=== PATIENT | male | born 1940 | race Caucasian/White ===

== ENCOUNTER 2021-05-18 13:12 | Observation (INO) | payer MEDICARE, BC ==
[2021-05-18] VITALS (9 sets, daily range): BP systolic 117–179; BP diastolic 62–79
[~2021-05-18] VITALS: Ht 175.3 cm; Wt 88.6 kg
--- NOTE | 2021-05-18 13:12 | NUR ---
PT TO ROOM VIA EMS STRETCHER. HE REPORTS DIZZINESS AND GENERALIZED WEAKNESS AFTER WORKING IN HEAT AND TAKING AN OLD MEDICAL MARIJUANA PILL. DR RIOS AT BEDSIDE.
--- NOTE | 2021-05-18 13:17 | NUR ---
DR RIOS CALLED A STROKE ALERT.
--- NOTE | 2021-05-18 13:24 | NUR ---
VITAL SIGNS OBTAINED PATIENT APPEARS DROWSY AND PATIENT TO CT SCAN ON PRODUCT INSPECTION SUPERVISOR WITH NURSE X 2. VSS.
--- NOTE | 2021-05-18 13:34 | NUR ---
DR GONZALES ON TELE SCREEN AT THIS TIME TO ASSESS PATIENT. DR RIOS NOW AT BEDSIDE IN CT SCAN REQUESTING THAT HE STOP HIS ASSESSMENT PT IS COMPLAINING OF ABD PAIN WITH HISTORY OF ABDOMINAL ANEURYSM AND WE NEED A STAT CT SCAN OF THE ABDOMEN. HE WILL WAIT AND FINISH ASSESSMENT AFTER SCAN.
--- NOTE | 2021-05-18 13:55 | NUR ---
PT RETURNED FROM CT, MARIO INITIATED, BP 193/84.
[2021-05-18 14:03] LABS: HEMATOCRIT 41.1 % (39.0-50.0); HEMOGLOBIN 13.4 g/dl (14.0-18.0); IMMATURE GRANULOCYTES 0.6 % (0.0-5.0); MEAN CELL VOLUME 91.1 fL CALC (80.0-100.0); MEAN CORPUSCULAR HGB 29.7 pG CALC (26.0-32.0); MEAN CORPUSCULAR HGB CONC 32.6 g/dL CAL (32.0-36.0); NEUT# 3.76 thou/uL (1.82-7.42); RED BLOOD COUNT 4.51 mill/uL (4.70-6.10); RED CELL DISTRI WIDTH 13.3 % (11.5-15.5)
--- NOTE | 2021-05-18 14:05 | NUR ---
PATIENT BP NOTED TO BE 156/67, DR BATISTA, MARIO SALAZAR'D
[2021-05-18 14:14] LABS: ALBUMIN 3.9 g/dL (3.2-5.0); ALKALINE PHOSPHATASE 70 u/l (38-126); AMYLASE 58 u/l (30-110); ANION GAP 11 (6-22 (CALC)); BILIRUBIN, TOTAL 0.6 mg/dL (0.0-1.4); BUN 24 mg/dL (8-23); BUN/CREATININE RATIO 18 (12-20 (CALC)); CARBON DIOXIDE 27 mmol/l (22-30); CHLORIDE 100 mmol/l (95-108); CREATININE 1.3 mg/dL (0.7-1.3); ETHYL ALCOHOL 0 mg/dl (0-30); GFR 53 ML/MIN (>=60 (CALC)); GFR FOR AFR.AMER. > 60 ML/MIN (>=60 (CALC)); LIPASE 33 u/l (23-300); MAGNESIUM 2.1 mg/dL (1.6-2.3); POTASSIUM 4.3 mmol/l (3.5-5.1); SGOT/AST 41 u/l (19-48); SODIUM 134 mmol/l (137-146)
[2021-05-18 14:26] LABS: ACT PARTIAL THROMBO TIME 19.5 SECONDS (20.0-32.5); D-DIMER 3.69 mg/L (0.19-0.60); PROTHROMBIN TIME 10.3 SECONDS (9.0-12.5)
--- NOTE | 2021-05-18 14:42 | NUR ---
PT POOR HISTORAIN, UNABLE TO RECONCILE MEDICATIONS.
--- NOTE | 2021-05-18 14:46 | NUR ---
PATIENT RESTING QUIETLY. MOUTH CARE GIVEN. CALL IVEY IN REACH.
[2021-05-18 15:13] LABS: URINE BILIRUBIN - DIPSTICK NEGATIVE (NEGATIVE); URINE BLOOD DIPSTICK NEGATIVE (NEGATIVE); URINE COLOR YELLOW; URINE GLUCOSE - DIPSTICK >=1000 mg/dL (NEGATIVE); URINE KETONE NEGATIVE (NEGATIVE); URINE LEUK ESTERASE NEGATIVE (NEGATIVE); URINE PH 7.5 (4.5-8.0); URINE PROTEIN - DIPSTICK NEGATIVE (NEG-TRACE); URINE UROBILINOGEN - DIPSTICK 0.2 E.U./dL (0.2)
[2021-05-18 15:18] LABS: URINE NITRITE - DIPSTICK NEGATIVE (Negative)
--- NOTE | 2021-05-18 15:30 | NUR ---
PATIENT STABLE,RESTING QUIETLY.
--- NOTE | 2021-05-18 16:00 | NUR ---
SPOKE TO PATIENT DAUGHTER NICOLASA LÓPEZ REGARDING STATUS.
--- NOTE | 2021-05-18 16:45 | NUR ---
RECIEVED REPORT FROM ER NURSE NABOR.
--- NOTE | 2021-05-18 17:00 | NUR ---
PATIENT ARRIVED ONTO THE FLOOR
--- NOTE | 2021-05-18 17:03 | NUR ---
REPORT CALLED TO NAHED SYKES IN ICU
--- NOTE | 2021-05-18 17:25 | NUR ---
PATIENT ASSESSED, A/O X3. DROWSY. 4MM EYES BILAT. MARILYN SCORE 2. 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 STRONG PULSES. EDEMA BLE PIT 2+. ACTIVE BS. BM THIS AM. WEAK BLE. CLEAR/DIMINSIHED LUNG SOUNDS. CLEAR/SLOW SPEECH. SAEFTY MEASURES IN PLACE. CALL LIGHT IN REACH. WILL CONTINUE TO MONITOR. SPOKE TO DAUGHTER JOHNNIE, REQUESTED AN UPDATE.
--- NOTE | 2021-05-18 20:00 | NUR ---
PATIENT RESTING IN BED WITH EYES CLSOED. AWAKENS EASILY TO NAME. ALERT AND OREINTED ON AWAKENING. SPEECH CLEAR AND APPROPRIATE IN RESPONSE TO QUESTIONS. FACE SYMMETRICL, TONGUE MIDLINE ON EXTENSION. FOLLOWS DIRECTIONS. HG AND P/P EQUAL AND FIRM. NO DRIFT NOTED. RESP NON-LABORED. LUNGS CLEAR. SALINE LOCK INTATC IN LW. IV IN RAC WITH NS INFUSING AT 100 ML/HR. BOTH IV SITES BENIGN. SUPERVISOR NUT PROCESSING SHOWS SR. DISCUSSED PLAN OF CARE. PATIENT STATES HE IS HUNGRY. PATIENT PROVIDED WITH SANDWICH, SODA, AND APPLESAUCE. CALL IVEY IN REACH.
--- NOTE | 2021-05-18 22:15 | NUR ---
PATIENT RESTING IN BED WITH EYES CLSOED. RESP NON-LABORED. VSS. SR WITH 1 [address] DEGREE AVB ON MONITOR. PATIENT DAUGHTER YASMANI LÓPEZ PHONED IN FOR CONDITION UPDATE.
--- NOTE | 2021-05-18 22:45 | NUR ---
SONANTA 5 MG PO GIVEN FOR SLEEP PER PATIENT REQUEST.
[2021-05-19] VITALS (8 sets, daily range): BP systolic 136–181; BP diastolic 63–79
--- NOTE | 2021-05-19 | NUR ---
VSS. RESP NON-LABORED. RESTING QUIETLY.
--- NOTE | 2021-05-19 02:00 | NUR ---
SLEEPING. VSS. RESP NON-LABORED.
--- NOTE | 2021-05-19 04:05 | NUR ---
NO CHANGES TO REPORT. VSS. SB WITH 1 ST DEGREE AVB ON MONITOR.
--- NOTE | 2021-05-19 06:00 | NUR ---
APRESOLINE 10 MG IVP GIVEN ORDERED FOR ELEVATED BP. TYLENOL 650 MG PO FOR C/O HEADACHE.
[2021-05-19 06:26] LABS: HEMOGLOBIN 13.2 g/dl (14.0-18.0); MEAN CELL VOLUME 93.4 fL CALC (80.0-100.0); MEAN CORPUSCULAR HGB 30.1 pG CALC (26.0-32.0); MEAN CORPUSCULAR HGB CONC 32.2 g/dL CAL (32.0-36.0); RED BLOOD COUNT 4.39 mill/uL (4.70-6.10); RED CELL DISTRI WIDTH 13.6 % (11.5-15.5)
[2021-05-19 06:33] LABS: ALBUMIN 3.4 g/dL (3.2-5.0); ALKALINE PHOSPHATASE 59 u/l (38-126); ANION GAP 9 (6-22 (CALC)); BILIRUBIN, TOTAL 0.6 mg/dL (0.0-1.4); BUN 21 mg/dL (8-23); BUN/CREATININE RATIO 19 (12-20 (CALC)); CALCULATED LDLCHOLESTEROL 125 mg/dL (62-129 (CALC)); CARBON DIOXIDE 25 mmol/l (22-30); CHLORIDE 105 mmol/l (95-108); CHOLESTEROL HDL RATIO 4.6 (<4.4 (CALC)); CREATININE 1.1 mg/dL (0.7-1.3); GFR > 60 ML/MIN (>=60 (CALC)); GFR FOR AFR.AMER. > 60 ML/MIN (>=60 (CALC)); HDL CHOLESTEROL 43 mg/dL (>=40); POTASSIUM 4.4 mmol/l (3.5-5.1); SGOT/AST 30 u/l (19-48); SODIUM 135 mmol/l (137-146); TOTAL CHOLESTEROL 197 mg/dl (0-199); TOTAL PROTEIN 6.1 g/dL (6.3-8.2); TOTAL TRIGLYCERIDES 146 mg/dl (30-149); VLDL CHOLESTROL 29 mg/dl (0-38 (CALC))
[2021-05-19] MEDS ORDERED: PROAIR HFA IN (07:17)
[2021-05-19] MEDS ORDERED: JARDIANCE25 MG PO (07:17)
[2021-05-19] MEDS ORDERED: SYMBICORT1 AE1 IN (07:17)
[2021-05-19] MEDS ORDERED: FINASTERIDE5 MG PO (07:17)
[2021-05-19] MEDS ORDERED: IPRATROPIUM BROMIDE (07:18)
[2021-05-19] MEDS ORDERED: LIDOCAINE PATCH 55 % TOP (07:18)
[2021-05-19] MEDS ORDERED: CLARITIN10 M2 PO (07:18)
[2021-05-19] MEDS ORDERED: OXYCODONE5 M1 PO (07:19)
[2021-05-19] MEDS ORDERED: PRILOSEC20 MG/CAP PO (07:19)
[2021-05-19] MEDS ORDERED: LYRICA50 MG PO (07:19)
[2021-05-19] MEDS ORDERED: TERAZOSIN1 MG PO ×2 (07:20)
[2021-05-19] MEDS ORDERED: REPAGLINIDE2 MG PO (07:20)
[2021-05-19] MEDS ORDERED: SPIRIVA IN (07:21)
[2021-05-19] MEDS ORDERED: TRAZODONE50 MG PO (07:21)
--- NOTE | 2021-05-19 07:33 | NUR ---
EXECUTIVE STEWARD DONE AT THIS TIME (SEE INTERVENTIONS). NIH SCORE CURRENTLY IS A "0" AND NEURO CHECKS REMAIN UNCHANGED AND ARE NEGATIVE FOR ANY DEFICITS. PATIENTS DOES PRESENT WITH LOWER LEG EDEMA AT 1-1/2+. PATIENT IS ALERT AND ORIENTED X3 GRASPS ARE STRONG BILATERALLY. PATIENT STATED HIS PAIN LEVEL IS ONLY A 2 AT THIS TIME DUE TO HIS CHRONIC BACK PAIN. PATIENT LUNG SOUNDS ARE DIMINISHED IN ALL CROSS. PATIENT DOES HAVE ACTIVE BOWEL SOUNDS IN ALL FOUR QUADRANTS. PATIENT IS ON TELE MONIOTER AND IS RUNNING S/R AT 61 WITH 1DEGREE AV BLOCK. EMS #18G IV REMOVED AT THIS TIME. PATIENT ASSISTED TO RECLINER AND SET UP FOR BREAKFAST. CALL LIGHT IS WITHIN REACH.
--- NOTE | 2021-05-19 08:30 | NUR ---
DR. NEUMANN IN TO SEE PATIENT AT THIS TIME.
--- NOTE | 2021-05-19 10:00 | NUR ---
PATIENT SITTING UP IN CHAIR AT THIS TIME. PATIENT DENIES ANY NEEDS OR PAIN CALL LIGHT WITHIN REACH. PATIENT IS ON ROOM AIR AND SPO2 IS 95% AT THIS TIME. CALL LIGHT WITHIN REACH.
--- NOTE | 2021-05-19 11:51 | NUR ---
PATIENT D/C AT THIS TIME. PATIENT VERBALIZES UNDERSTANDING OF D/C INSTRUCTIONS. IV REMOVED AND TIP INTACT.
--- NOTE | 2021-05-19 12:00 | NUR ---
Discharge instructions given. Patient verbalizes understanding of same. Discharged in stable condition via Wheelchair to Home with *Other. All belongings sent with pt. PATIENT REFUSED TO TAKE D/C PAPERWORK WITH HIM AT THIS TIME. PATIENT ADVISED THAT THE PAPERWORK CONTAINED HELPFUL EDUCATION ON HIS CONDITION AND HE COULD TAKE IT TO HIS PCP FOR REFERENCE. PATIENT STATED "MY DAUGHTER IS A NURSE AND I AM SEEING MY DR. TOMORROW IF HE NEEDS IT HE CAN CALL FOR IT".
== END 2021-05-19 12:00 | disposition home or self-care (01) ==
LOC: ED 13:12 → ICU 14:50
PROVIDERS: ADMIT Internal Medicine; ATTEND Internal Medicine
DX: R42 Dizziness and giddiness (principal); R53.1 Weakness; I10 Essential (primary) hypertension; E11.42 Type 2 diabetes mellitus with diabetic polyneuropathy; J44.9 Chronic obstructive pulmonary disease, unspecified; I71.4 Abdominal aortic aneurysm, without rupture; R10.84 Generalized abdominal pain; G89.4 Chronic pain syndrome; Z86.73 Personal history of transient ischemic attack (TIA), and cerebral infarction without residual deficits; Z85.51 Personal history of malignant neoplasm of bladder; Z95.828 Presence of other vascular implants and grafts; Z79.891 Long term (current) use of opiate analgesic; Z79.84 Long term (current) use of oral hypoglycemic drugs

== ENCOUNTER 2021-09-17 09:24 | Emergency (ER) | payer MEDICARE, BC ==
[~2021-09-17] VITALS: Ht 175.3 cm; Wt 95.0 kg
[~2021-09-17 09:24] MED LIST: CLARITIN10 M2 PO; FINASTERIDE5 MG PO; IPRATROPIUM BROMIDE; JARDIANCE25 MG PO; LIDOCAINE PATCH 55 % TOP; LYRICA50 MG PO; OXYCODONE5 M1 PO; PRILOSEC20 MG/CAP PO; PROAIR HFA IN; REPAGLINIDE2 MG PO; SPIRIVA IN; SYMBICORT1 AE1 IN; TERAZOSIN1 MG PO; TRAZODONE50 MG PO
[2021-09-17] MEDS ORDERED: OZEMPIC2 MG/1.5 M SC (09:55)
[2021-09-17 11:05] LABS: HEMATOCRIT 41.3 % (39.0-50.0); HEMOGLOBIN 13.6 g/dl (14.0-18.0); IMMATURE GRANULOCYTES 0.2 % (0.0-5.0); MEAN CELL VOLUME 92.6 fL CALC (80.0-100.0); MEAN CORPUSCULAR HGB 30.5 pG CALC (26.0-32.0); MEAN CORPUSCULAR HGB CONC 32.9 g/dL CAL (32.0-36.0); NEUT# 8.6 thou/uL (1.82-7.42); RED BLOOD COUNT 4.46 mill/uL (4.70-6.10); RED CELL DISTRI WIDTH 12.5 % (11.5-15.5)
[2021-09-17 11:29] LABS: ALKALINE PHOSPHATASE 66 u/l (38-126); AMYLASE 57 u/l (30-110); ANION GAP 14 (6-22 (CALC)); BUN 27 mg/dL (8-23); BUN/CREATININE RATIO 18 (12-20 (CALC)); CARBON DIOXIDE 27 mmol/l (22-30); CHLORIDE 101 mmol/l (95-108); CREATININE 1.5 mg/dL (0.7-1.3); GFR 45 ML/MIN (>=60 (CALC)); GFR FOR AFR.AMER. 55 ML/MIN (>=60 (CALC)); LIPASE 21 u/l (23-300); POTASSIUM 4.4 mmol/l (3.5-5.1); SGOT/AST 24 u/l (19-48); SODIUM 137 mmol/l (137-146); TOTAL PROTEIN 7.3 g/dL (6.3-8.2)
[2021-09-17 11:42] LABS: MYOGLOBIN 225 ng/mL (0 - 121)
[2021-09-17 11:49] LABS: ALBUMIN 4.1 g/dL (3.2-5.0); BILIRUBIN, TOTAL 1.1 mg/dL (0.0-1.4)
[2021-09-17 12:47] LABS: URINE BLOOD DIPSTICK NEGATIVE (NEGATIVE); URINE GLUCOSE - DIPSTICK NEGATIVE (NEGATIVE); URINE KETONE NEGATIVE (NEGATIVE); URINE LEUK ESTERASE NEGATIVE (NEGATIVE); URINE PROTEIN - DIPSTICK TRACE mg/dL (NEG-TRACE)
[2021-09-17 12:55] LABS: URINE BILIRUBIN - DIPSTICK SMALL (NEGATIVE); URINE COLOR AMBER; URINE NITRITE - DIPSTICK NEGATIVE (Negative)
[2021-09-17] MEDS ORDERED: ZITHROMAX250 MG PO (13:43)
[2021-09-17 13:47] VITALS: BP 110/68
[2021-09-17] MEDS ORDERED: ROBITUSSIN AC10 ML PO (14:19)
== END 2021-09-17 14:20 | disposition home or self-care (01) ==
LOC: ED 09:24
PROVIDERS: Emergency Medicine
DX: J18.9 Pneumonia, unspecified organism (principal); J44.0 Chronic obstructive pulmonary disease with (acute) lower respiratory infection; E11.9 Type 2 diabetes mellitus without complications; I10 Essential (primary) hypertension; Z86.73 Personal history of transient ischemic attack (TIA), and cerebral infarction without residual deficits; Z20.822 Contact with and (suspected) exposure to COVID-19

== ENCOUNTER 2021-10-10 11:50 | Emergency (ER) | payer OTHER, MEDICARE, BC ==
[~2021-10-10] VITALS: Ht 175.3 cm; Wt 88.0 kg
[~2021-10-10 11:50] MED LIST changes: +OZEMPIC2 MG/1.5 M SC; +ROBITUSSIN AC10 ML PO; +ZITHROMAX250 MG PO
[2021-10-10 14:48] LABS: HEMATOCRIT 39.4 % (39.0-50.0); HEMOGLOBIN 12.9 g/dl (14.0-18.0); IMMATURE GRANULOCYTES 0.3 % (0.0-5.0); MEAN CELL VOLUME 92.1 fL CALC (80.0-100.0); MEAN CORPUSCULAR HGB 30.1 pG CALC (26.0-32.0); MEAN CORPUSCULAR HGB CONC 32.7 g/dL CAL (32.0-36.0); NEUT# 5.04 thou/uL (1.82-7.42); RED BLOOD COUNT 4.28 mill/uL (4.70-6.10); RED CELL DISTRI WIDTH 12.4 % (11.5-15.5)
[2021-10-10 15:10] LABS: ALBUMIN 3.8 g/dL (3.2-5.0); ALKALINE PHOSPHATASE 97 u/l (38-126); ANION GAP 12 (6-22 (CALC)); BILIRUBIN, TOTAL 0.7 mg/dL (0.0-1.4); BUN 23 mg/dL (8-23); BUN/CREATININE RATIO 17 (12-20 (CALC)); CARBON DIOXIDE 30 mmol/l (22-30); CHLORIDE 100 mmol/l (95-108); CREATININE 1.3 mg/dL (0.7-1.3); GFR 53 ML/MIN (>=60 (CALC)); GFR FOR AFR.AMER. > 60 ML/MIN (>=60 (CALC)); POTASSIUM 4.6 mmol/l (3.5-5.1); SGOT/AST 23 u/l (19-48); SODIUM 138 mmol/l (137-146); TOTAL PROTEIN 7.2 g/dL (6.3-8.2)
[2021-10-10 15:11] LABS: ACT PARTIAL THROMBO TIME 24.5 SECONDS (20.0-32.5); PROTHROMBIN TIME 10.1 SECONDS (9.0-12.5)
[2021-10-10 16:10] VITALS: BP 127/61
== END 2021-10-10 16:10 | disposition left against medical advice (07) | DRG 603 ==
LOC: ED 11:50
PROC: 09C47ZZ Extirpation of Matter from Left External Auditory Canal, Via Natural or Artificial Opening (ICD-10-PCS; principal; 2021-10-10)
DX: L02.212 Cutaneous abscess of back [any part, except buttock and flank] (principal); T16.2XXA Foreign body in left ear, initial encounter; E11.9 Type 2 diabetes mellitus without complications; J44.9 Chronic obstructive pulmonary disease, unspecified; X58.XXXA Exposure to other specified factors, initial encounter; Z91.19 Patient's noncompliance with other medical treatment and regimen; Z86.73 Personal history of transient ischemic attack (TIA), and cerebral infarction without residual deficits; Z98.890 Other specified postprocedural states; Z20.822 Contact with and (suspected) exposure to COVID-19

== ENCOUNTER 2021-10-19 13:46 | Emergency (ER) | payer OTHER, MEDICARE, BC ==
[~2021-10-19] VITALS: Ht 175.3 cm; Wt 110.0 kg
[2021-10-19 15:02] VITALS: BP 120/74
== END 2021-10-19 15:02 | disposition home or self-care (01) | DRG 951 ==
LOC: ED 13:46
DX: Z48.01 Encounter for change or removal of surgical wound dressing (principal); E11.9 Type 2 diabetes mellitus without complications; J44.9 Chronic obstructive pulmonary disease, unspecified; Z86.73 Personal history of transient ischemic attack (TIA), and cerebral infarction without residual deficits